=== PATIENT | male | born 1990 | race Caucasian/White ===

== ENCOUNTER 2021-10-20 18:16 | Emergency (ER) | payer SELFPAY ==
[~2021-10-20] VITALS: Ht 180.3 cm; Wt 68.0 kg
[2021-10-20] MEDS ORDERED: SOFO1TAB PO (18:33)
--- NOTE | 2021-10-20 18:58 | NUR ---
[email or web address], medical screening exam in progress
[2021-10-20] MEDS ORDERED: LACT10SO3 PO (19:05)
--- NOTE | 2021-10-20 19:26 | NUR ---
Patient discharged to home in stable condition. Written and verbal after care instructions given. Patient verbalizes understanding of instructions. Stressed follow up or return to ER for worsening s/s. Ambulated Addendum: 10/20/21 at 1927 by WILLIS Ambulated out of ED in steady gait.
[2021-10-20 19:40] VITALS: BP 120/74
== END 2021-10-20 19:51 | disposition home or self-care (01) ==
LOC: ER 18:25
DX: R19.4 Change in bowel habit (principal); B19.20 Unspecified viral hepatitis C without hepatic coma
CPT/HCPCS: A4663

== ENCOUNTER 2021-10-25 09:44 | Emergency (ER) | payer SELFPAY ==
[~2021-10-25] VITALS: Ht 180.3 cm; Wt 68.0 kg
[~2021-10-25 09:44] MED LIST: LACT10SO3 PO; SOFO1TAB PO
--- NOTE | 2021-10-25 10:00 | NUR ---
Pt C/O constipation [id number]. States being able to use the restroom but in small amounts. Denies pain.
[2021-10-25 10:29] VITALS: BP 118/71
--- NOTE | 2021-10-25 10:29 | NUR ---
Patient discharged to home in stable condition. Written and verbal after care instructions given. Patient verbalizes understanding of instructions. Stressed follow up or return to ER for worsening s/s.
== END 2021-10-25 10:30 | disposition home or self-care (01) ==
LOC: ER 09:44
DX: B19.20 Unspecified viral hepatitis C without hepatic coma (principal); R19.4 Change in bowel habit
CPT/HCPCS: A4663